=== PATIENT | female | born 1975 | race Hispanic/Latino ===

== ENCOUNTER 2024-12-21 17:44 | Emergency (ER) | payer OTHER ==
[~2024-12-21] VITALS: Ht 162.6 cm; Wt 87.4 kg
[2024-12-21] MEDS ORDERED: ALBUTEROL/IPRATROPIUM 3 ML NEB INH PRN (18:45)
[2024-12-21 18:57] LABS: BASOPHILS 1.2 % (0-2); EOSINOPHILS 3.1 % (0-6); HEMATOCRIT 38.8 % (35.0-50.0); HEMOGLOBIN 13.3 g/dL (12.0-18.0); LYMPHOCYTES 36.4 % (24-44); MCH 31.8 (27-36); MCHC 34.2 g/dl (30-36); MONOCYTES 10.3 % (0-12); PLATELET COUNT 325 K/uL (140-440); RBC 4.17 M/ul (4.3-5.7)
[2024-12-21 19:14] LABS: ALBUMIN/GLOBULIN RATIO 1.14 (1.1-2.4); ANION GAP 11.9 (7-21); BILIRUBIN, TOTAL 0.2 mg/dL (0.2-1.0); BUN/CREATININE RATIO 20.31 (6.0-28.6); CALCIUM 9.5 mg/dL (8.5-10.1); CREATININE, SERUM 0.64 mg/dL (0.55-1.02); MAGNESIUM 1.6 mg/dL (1.8-2.4); POTASSIUM 3.9 mmol/L (3.5-5.1); PROTEIN, TOTAL 7.5 g/dL (6.4-8.2)
[2024-12-21] MEDS ORDERED: SODIUM CHLORIDE 0.9% 1,000 ML IV PRN (20:00)
[2024-12-21] MEDS ORDERED: ACETAMINOPHEN 500 MG TAB PO ONE (20:00)
[2024-12-21] MEDS ORDERED: LACTATED RINGER'S 1,000 ML IV ONE (20:00)
[2024-12-21 20:13] LABS: CORONAVIRUS COVID-19 AG NEGATIVE (NEGATIVE); INFLUENZA A AG NEGATIVE (NEGATIVE); INFLUENZA B AG NEGATIVE (NEGATIVE)
[2024-12-21 20:36] LABS: BILIRUBIN, URINE NEGATIVE (negative); BLOOD/HGB, URINE MODERATE (Negative); KETONE, URINE NEGATIVE (Negative); LEUK ESTERASE, URINE NEGATIVE (negative); NITRITE, URINE NEGATIVE (negative)
[2024-12-21 20:51] LABS: AMPHETAMINES, URINE NEGATIVE (NEGATIVE); BACTERIA, URINE RARE /hpf (negative); BARBITURATES, URINE NEGATIVE (NEGATIVE); BENZODIAZEPINE, URINE NEGATIVE (NEGATIVE); BUPRENORPHINE, URINE NEGATIVE (NEGATIVE); CANNABINOID, URINE NEGATIVE (NEGATIVE); CASTS, URINE NONE SEEN \\lpf; COCAINE, URINE NEGATIVE (NEGATIVE); COLLECTION TYPE, URINE CLEAN CATCH; CRYSTALS, URINE NONE SEEN (0-1+); ECSTASY, URINE NEGATIVE (NEGATIVE); EPITHELIAL CELLS, URINE SQUAMOUS 3+ /lpf (0-1+); FENTANYL, URINE NEGATIVE (NEGATIVE); METHADONE, URINE NEGATIVE (NEGATIVE); OPIATES, URINE NEGATIVE (NEGATIVE); OXYCODONE, URINE NEGATIVE (NEGATIVE); PHENCYCLIDINE, URINE NEGATIVE (NEGATIVE); RED BLOOD CELLS, URINE 0-1 /hpf (0-5); REFLEX CULTURE, URINE No (No); WHITE BLOOD CELLS, URINE 0-1 /HPF (0-5)
[2024-12-21] MEDS ORDERED: INHALER, ASSIST DEVICES 1 EACH SPACER MISC ONE (21:30)
[2024-12-21] MEDS ORDERED: ALBUTEROL SULFATE 8 GM HOME.PACK INH ONE (21:30)
[2024-12-21 21:31] VITALS: BP 136/82
[2024-12-21] MEDS ORDERED: DEXAMETHASONE SOD PHOS 10 MG/ML VIAL IV ONE (21:45)
--- NOTE | 2024-12-22 12:42 | EKG ---
[facility] [address] [facility] [place] [address] Signed Sinus rhythm with premature atrial complexes Otherwise normal ECG No previous ECGs available Confirmed by Tressa Saldaña MD () on 12/22/2024 12:42:31 PM Electronically Signed By: TRESSA SALDAÑA MD 12/22/24 1242 PATIENT NAME: JACQUELYN DODGE Electrocardiogram DATE OF : 77 PHYSICIAN: TRESSA SALDAÑA MD REPORT #: [id number] REPORT IS CONFIDENTIAL AND NOT TO BE RELEASED WITHOUT AUTHORIZATION
== END 2024-12-21 21:49 | disposition home or self-care (01) ==
LOC: ED 17:44
PROVIDERS: Emergency Medicine; Internal Medicine
DX: J06.9 Acute upper respiratory infection, unspecified (principal); B97.89 Other viral agents as the cause of diseases classified elsewhere; M94.0 Chondrocostal junction syndrome [Tietze]
CPT/HCPCS: 36415; 71045; 80053; 80307; 81001; 83735; 84484; 84703; 85025; 93005; 93010; 94640; 96374; 99285-25; A9270; J1100; J7121